=== PATIENT | female | born 1950 | race Caucasian/White ===

== ENCOUNTER 2020-01-17 15:28 | Emergency (ER) | payer MEDICARE, OTHER ==
[2020-01-17 15:52] VITALS: BP 139/77; TEMP 97.8; O2SAT 95
--- NOTE | 2020-01-17 16:08 | RAD ---
EXAM DESCRIPTION: Hip,Left 2 Views CLINICAL HISTORY: 69 years, Female, left hip pain s/p fall. COMPARISON: None TECHNIQUE: AP and frog leg lateral views of the left hip FINDINGS: Images of the left hip demonstrate no acute displaced fracture or dislocation. No displaced femoral neck fracture. The osseous alignment is intact. Mild osteoarthrosis with collared osteophyte formation at the femoral neck. The soft tissues are unremarkable. Diffuse osteopenia. IMPRESSION: 1. No left displaced hip fracture or dislocation. 2. Diffuse osteopenia. Electronically signed by: Viral Kay DO 01/17/2020 4:07 PM [facility]
--- NOTE | 2020-01-17 16:27 | ED.PDOC ---
History of Present Illness - General Chief Complaint: Lower Extremity Injury Stated Complaint: left hip and groin pain Time Seen by Provider: 01/17/20 15:50 Source: patient, RN notes reviewed, Vital Signs reviewed - History of Present Illness Initial Comments: Patient is a 69-year-old white female who presents with complaints of left hip pain and feels that it is popped out of place. Patient states that she fell a few days ago and had some mild pain and then she tripped today and kwabena her left hip but did not fall. Patient complains of pain with movement and pain with palpation and the posterior aspect of her hip feels out of place. She states the pain is mild in nature. It is worse with movement, better with rest. It is aching in nature. States this pain is similar something she has had in the past and she went to her chiropractor and she adjusted her and the pain went away. Occurred: just prior to arrival Pain - Lower Extremity: mild: Left Thigh/Hip Method of Injury: twisted Improving Factors: rest Worsening Factors: movement Allergies/Adverse Reactions: Allergies Caffeine [From Cafergot] Allergy (Verified 06/26/15 09:37) Ergotamine [From Cafergot] Allergy (Verified 06/26/15 09:37) Sulfa Antibiotics Allergy (Verified 06/26/15 09:37) Bacitracin [From Neosporin] Adverse Reaction (Verified 06/26/15 09:37) Ciprofloxacin [From Cipro] Adverse Reaction (Verified 06/26/15 09:34) Anaphylaxis Hydrocodone Adverse Reaction (Verified 06/26/15 09:37) Neomycin [From Neosporin] Adverse Reaction (Verified 06/26/15 09:37) Polymyxin B [From Neosporin] Adverse Reaction (Verified 06/26/15 09:37) Home Medications: Ambulatory Orders Buspirone HCl 15 mg PO BID 06/26/15 Thyroid [Nature-Throid] 97.5 mg PO DAILY 01/17/20 Review of Systems - Review of Systems Constitutional: States: no symptoms reported, see HPI. Denies: chills, fever, weakness EENTM: States: no symptoms reported. Denies: blurred vision, double vision Respiratory: States: no symptoms reported. Denies: cough, short of breath, wheezing Cardiology: States: no symptoms reported. Denies: chest pain, palpitations, syncope Gastrointestinal/Abdominal: States: no symptoms reported. Denies: abdominal pain, diarrhea, nausea, vomiting Genitourinary: States: no symptoms reported. Denies: dysuria, frequency, hematuria Musculoskeletal: States: see HPI, joint pain, muscle pain, muscle stiffness Skin: States: no symptoms reported. Denies: change in color, rash Neurological: States: no symptoms reported. Denies: numbness, paresthesia, tingling, weakness Endocrine: States: no symptoms reported Hematologic/Lymphatic: States: no symptoms reported All other Systems: Reviewed and Negative Past Medical History (General) - Patient Medical History Hx Seizures: No Hx Asthma: No Hx Cardiac Disorders: No Hx Thyroid Disease: Yes Hx Diabetes: No Hx Gastroesophageal Reflux: No Surgical History: appendectomy, Hysterectomy - Vaccination History Hx Tetanus, Diphtheria Vaccination: Yes - over 10 years Hx Influenza Vaccination: No Hx Pneumococcal Vaccination: No - Social History Hx Tobacco Use: No Hx Chewing Tobacco Use: No Hx Alcohol Use: No Hx Substance Use: No Hx Substance Use Treatment: No Hx Depression: Yes - Anxiety/depression Hx Physical Abuse: No Hx Emotional Abuse: No Hx Suspected Abuse: No - Female History Patient : No Family Medical History - Family History Mother Hx Family Cancer: Yes - Breast Hx Family;Other: paranoia Physical Exam - Physical Exam General Appearance: Alert, Anxious, Comfortable, Well Developed, Well Groomed, Well Hydrated, Well Nourished Eyes, Ears, Nose, Throat: PERRL/EOMI, normal ENT inspection, pharynx normal Neck: non-tender, full range of motion, supple, normal inspection Cardiovascular/Respiratory: regular rate, rhythm, no M/R/G, normal peripheral pulses, no JVD, normal breath sounds, no respiratory distress Gastrointestinal/Abdominal: non-tender, no organomegaly Back: normal inspection, no CVA tenderness, no vertebral tenderness Thigh/Hip: normal ROM, bone tenderness - Left posterior hip., pain Leg: normal inspection Knee: normal inspection Ankle: normal inspection Foot: normal inspection Neuro/Tendon: normal sensation, normal motor functions, normal tendon functions, responds to pain Mental Status: alert, oriented x 3 Skin: normal color, warm/dry Progress - Progress Progress: Differential diagnosis: Left hip fracture, left hip dislocation, left hip contusion, musculoskeletal strain among others. 01/17/20 16:30 Patient's x-rays are negative for fracture dislocation. I offered patient Ultram but she defers and states that she has Tylenol which will take care of her pain. She was just worried that it was fractured. I have discussed plan of care with the patient including use of Tylenol Motrin for pain and discharge home with follow-up with PCP or chiropractor. She voices understanding and agreement with the plan of care. Crow Elliott M.D. #[id number] - Results/Orders Results/Orders: EXAM DESCRIPTION: Hip,Left 2 Views CLINICAL HISTORY: 69 years, Female, left hip pain s/p fall. COMPARISON: None TECHNIQUE: AP and frog leg lateral views of the left hip FINDINGS: Images of the left hip demonstrate no acute displaced fracture or dislocation. No displaced femoral neck fracture. The osseous alignment is intact. Mild osteoarthrosis with collared osteophyte formation at the femoral neck. The soft tissues are unremarkable. Diffuse osteopenia. IMPRESSION: 1. No left displaced hip fracture or dislocation. 2. Diffuse osteopenia. Electronically signed by: Viral Kay DO 01/17/2020 4:07 PM [facility] Departure - Departure Clinical Impression: Other sprain of left hip, initial encounter Contusion of hip, left Qualifiers: Encounter type: initial encounter Qualified Code(s): S70.02XA - Contusion of left hip, initial encounter Disposition: Discharge to Home or Self Care Condition: Good Departure Forms: ED Discharge - Pt. Copy, Patient Portal Self Enrollment Instructions: Hip Pain (DC) Activity: increase activity as tolerated Referrals: Melly Zelaya FNP [Primary Care Provider] - 1-5 Days Home Medications: Ambulatory Orders Buspirone HCl 15 mg PO BID 06/26/15 Thyroid [Nature-Throid] 97.5 mg PO DAILY 01/17/20
== END 2020-01-17 16:46 | disposition home or self-care (01) ==
LOC: ER 15:28
DX: S70.02XA Contusion of left hip, initial encounter (principal); S73.102A Unspecified sprain of left hip, initial encounter; M85.80 Other specified disorders of bone density and structure, unspecified site; E07.9 Disorder of thyroid, unspecified; F41.9 Anxiety disorder, unspecified; F32.9 Major depressive disorder, single episode, unspecified; W18.40XA Slipping, tripping and stumbling without falling, unspecified, initial encounter; Z88.8 Allergy status to other drugs, medicaments and biological substances; Z88.2 Allergy status to sulfonamides; Z88.1 Allergy status to other antibiotic agents; Z88.5 Allergy status to narcotic agent; Z79.899 Other long term (current) drug therapy; Y92.9 Unspecified place or not applicable